=== PATIENT | male | born 1955 | race Caucasian/White ===

== ENCOUNTER → 2020-04-29 | Outpatient (CLI) | payer OTHER | LOC: M LABSMTC 08:57 | PROVIDERS: ATTEND Anesthesiology | DX: Z01.818 Encounter for other preprocedural examination (principal); Z20.828 Contact with and (suspected) exposure to other viral communicable diseases | CPT/HCPCS: C9803; U0003 ==

== ENCOUNTER 2020-05-04 09:45 | Day surgery (SDC) | payer OTHER ==
[~2020-05-04] VITALS: Ht 177.8 cm; Wt 83.5 kg
[~2020-05-04 09:45] MED LIST: AMLO1TAB25 PO; CLAR10CA3 PO; ECOT81TA5 PO; LOSA100T50 PO; LR 1,000 ML IV ONE; SERT50TA29 PO
[2020-05-04 10:50] LABS: BLOOD UREA NITROGEN 10 MG/DL (7-18); CALCIUM LEVEL 9.3 MG/DL (8.8-10.2); CARBON DIOXIDE LEVEL 30 MEQ/L (21-32); CHLORIDE LEVEL 105 MEQ/L (98-107); CREATININE FOR GFR 0.91 MG/DL (0.70-1.30); GLOMERULAR FILTRATION RATE > 60.0 (>49); GLUCOSE, FASTING 112 MG/DL (70-100); POTASSIUM SERUM 4.1 MEQ/L (3.5-5.1); SODIUM LEVEL 141 MEQ/L (136-145)
[2020-05-04] MEDS ORDERED: BUPIVACAINE HCL 0.25% 30ML VIAL As Ordered ONE (12:25)
[2020-05-04] MEDS ORDERED: METOCLOPRAMIDE INJ 10MG/2ML VIAL (J2765 PER 1) As Ordered ONE (13:14)
[2020-05-04] MEDS ORDERED: dexameTHASONE 4 MG/ML 1ML VIAL (J1100 PER 1MG) As Ordered ONE (13:14)
[2020-05-04] MEDS ORDERED: ONDANSETRON 4MG/2ML VIAL As Ordered ONE (13:14)
[2020-05-04] MEDS ORDERED: ROCURONIUM BROMIDE 50 MG/5 ML VIAL As Ordered ONE (13:14)
[2020-05-04] MEDS ORDERED: propofoL 200 MG/20 ML VIAL As Ordered ONE (13:14)
[2020-05-04] MEDS ORDERED: LIDOCAINE 2% 100MG/5ML SDV (FOR ANES.) As Ordered ONE (13:14)
[2020-05-04] MEDS ORDERED: SUGAMMADEX SODIUM 500 MG/5 ML VIAL (BRIDION) As Ordered ONE (13:14)
[2020-05-04] MEDS ORDERED: MIDAZOLAM INJ 2MG/2ML VIAL (J2250 PER 1MG) As Ordered ONE (13:14)
[2020-05-04] MEDS ORDERED: fentaNYL 250 MCG/5 ML INJECTION (J3010) As Ordered ONE (13:14)
[2020-05-04] MEDS ORDERED: ACETAMINOPHEN 1000MG 100ML IV BTL (OFIRMEV) (J0131 PER 10MG) As Ordered ONE (13:52)
[2020-05-04] MEDS: LR 1,000 ML IV SCH ×2 (14:45→15:40)
[2020-05-04] MEDS ORDERED: NORC1TAB7 PO (14:58)
[2020-05-04] MEDS ORDERED: MEPERIDINE INJ 25 MG/ML VIAL (J2175) IV PRN (15:30)
[2020-05-04] MEDS ORDERED: fentaNYL 100 MCG/2 ML INJECTION (J3010) IV PRN (15:30)
[2020-05-04] MEDS ORDERED: ONDANSETRON 4MG/2ML VIAL IV PRN (15:30)
[2020-05-04] MEDS ORDERED: METOCLOPRAMIDE INJ 10MG/2ML VIAL (J2765 PER 1) IV PRN (15:30)
[2020-05-04] MEDS: oxyCODONE 5MG TAB PO PRN ×2 (15:41→16:11)
[2020-05-04] MEDS ORDERED: ACETAMINOPHEN TAB 650MG DOSE (2X325MG) PO PRN (16:00)
[2020-05-04] MEDS ORDERED: NORCO, ANEXSIA 5/325MG TABLET (HYDROcodone/ACETAMINOPHEN) PO PRN (16:00)
[2020-05-04] MEDS ORDERED: IBUPROFEN 600MG TAB PO PRN (16:00)
--- NOTE | 2020-05-05 15:25 | ECGEPIP ---
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
--- NOTE | 2020-05-08 13:59 | RO ---
DATE OF PROCEDURE: 05/04/2020 PREOPERATIVE DIAGNOSIS: Right inguinal hernia. POSTOPERATIVE DIAGNOSIS: Direct right inguinal hernia. PROCEDURE PERFORMED: Robotic-assisted laparoscopic right inguinal herniorrhaphy with mesh. The mesh utilized was [employer] ProGrip, reference code [id number], and lot number [id number]. SURGEON: Patrick Pandey MD LOG HAUL OPERATOR: Michelle Kong. Vidhya assistance was essential for management of the robot with adjustment of the robotic arms and instruments and passage of sutures and mesh. ANESTHESIA: General. INDICATIONS FOR THE PROCEDURE: Patient is a 65-year-old man who presented with complaints of a small intermittent bulge in the right groin area with some discomfort. He had had a previous left inguinal hernia repair done in [place] approximately three years earlier. He is now for a robotic-assisted right inguinal herniorrhaphy. OPERATIVE PROCEDURE: Patient was brought to the operating room and placed on the table in a supine position. He was placed under general endotracheal anesthesia. The patients abdomen, groins, and genitalia were prepped and draped in a sterile fashion. 0.25% Marcaine was infiltrated at each of the trocar sites as needed. A short transverse incision was made in the epigastrium approximately 3 cm to the left of the midline and approximately 4-5 cm above the umbilicus. A varus needle was inserted and after a positive hanging drop test the abdomen was inflated with carbon dioxide gas. An 8 mm robotic port was placed over a 5 mm scope and advanced through the abdominal wall without difficulty. Initial examination showed no evidence of trocar injury. Inspection showed normal appearing small and large bowel. The stomach appeared normal. The gallbladder and liver appeared normal as well. A second 8 mm port was placed in the right upper quadrant and a third was placed in the left upper quadrant. The patient was then tilted to approximately 15 degrees of Trendelenburg position. The patient cart of the [email or web address] robotic system was brought into position and the endoscope arm was docked to the middle port. Targeting took place in the pelvis and the additional robotic arms were docked. A fenestrated bipolar and cauterizing scissors were inserted. I then moved to the control console to proceed with the operation. Initial inspection showed a small hernia defect on the right which was clearly medial to the inferior epigastric vessels. There was a protrusion noted in the left inguinal area of what appeared to be some mesh material indenting to the peritoneum in this area. There was no sign of a recurrent hernia on the left. I then moved to proceed with creation of a peritoneal flap on the right. Beginning at the medial umbilical ligament, the peritoneum was opened using the cauterizing scissors in an arc that extended laterally and then inferiorly toward the anterior superior iliac spine. A flap of the peritoneum and preperitoneal tissue was then created with a combination of blunt and cautery and sharp dissection. The spermatic cord vessels were identified and preserved. The vas deferens was noted. There was some fibrofatty tissue extending into the direct hernia defect somewhat and this was reduced with the peritoneal flap. The direct hernia defect appeared large enough to potentially cause problems with adequate adhesion of the mesh and I elected to close this defect. A 3-0 polybutester V-Loc suture was then used to close the fascial defect. The suture was begun at the medial aspect of the inguinal floor and carried laterally to close the hernia defect suturing the edges of the fascia together and then was carried back toward the medial aspect oversewing a portion of the previous closure for added security. The mesh as identified earlier was then trimmed slightly at the corners and inserted into the abdomen. This was placed into the preperitoneal space and unfolded carefully. This was pressed gently into the tissues allowing adhesion of the adherent surface of the mesh into the soft tissue. This nicely covered the entire inguinal floor area with a nice overlap. The peritoneal flap was then closed beginning at the lateral aspect and running medially with an absorbable 2-0 V-Loc suture. As the closure approached the midpoint, the patient was brought into only a 5 degree head down tilt and the pressure within the abdomen was reduced to 8 mmHg. The closure continued and was completed. At this point, the patient was placed flat. After ensuring that the needles were all recovered, the abdomen was deflated after undocking the robot. The ports were removed and Michelle Kong proceeded to close the incisions with buried 4-0 Vicryl and Steri-Strips. Light dressings were applied. The patient was awakened in the operating room, extubated, and moved to the recovery room in stable condition. PARVIN
== END 2020-05-04 17:19 | disposition home or self-care (01) ==
LOC: M SDC 09:45 → EDUNIT# 11:45 → M SDC 17:19
PROVIDERS: ATTEND Surgery
DX: K40.90 Unilateral inguinal hernia, without obstruction or gangrene, not specified as recurrent (principal); I10 Essential (primary) hypertension; E78.5 Hyperlipidemia, unspecified; K21.9 Gastro-esophageal reflux disease without esophagitis; G47.33 Obstructive sleep apnea (adult) (pediatric); Z79.899 Other long term (current) drug therapy; Z87.891 Personal history of nicotine dependence; Z91.018 Allergy to other foods; Z88.0 Allergy status to penicillin
CPT/HCPCS: 36415; 49650; 80048; 93005; C1781; J0131; J1100; J2250; J2405; J2765; J3010; S2900

== ENCOUNTER 2020-05-11 10:17 | Emergency (ER) | payer OTHER ==
[~2020-05-11] VITALS: Ht 177.8 cm; Wt 83.6 kg
[~2020-05-11 10:17] MED LIST changes: -LR 1,000 ML IV ONE; +NORC1TAB7 PO
[2020-05-11] MEDS ORDERED: ACETAMINOPHEN 500 MG TAB PO ONE (11:45)
--- NOTE | 2020-05-11 12:14 | REP ---
INDICATION: recent surgery, swelling pain r leg COMPARISON: None. TECHNIQUE: Real time compression and duplex Doppler interrogation of the right lower extremity deep venous system is performed. FINDINGS: The right common femoral, superficial femoral and popliteal veins are fully compressible with transducer pressure and demonstrate normal spontaneous and phasic flow, without evidence of deep venous thrombosis. IMPRESSION: No evidence of deep venous thrombosis of the right lower extremity femoral popliteal venous system. <Electronically signed by Chris Bernal > 05/11/20 [id number]
[2020-05-11 12:31] LABS: CK-MB VALUE MASS < 1.0 NG/ML (<3.6); CPK CREATINE PHOSPHOKINASE 72 U/L (39-308); MB/CK RELATIVE INDEX 1.39 (< OR =4); TROPONIN I < 0.02 NG/ML (< 0.10)
--- NOTE | 2020-05-11 14:32 | ECGEPIP ---
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
[2020-05-11 15:37] LABS: CK-MB VALUE MASS < 1.0 NG/ML (<3.6); CPK CREATINE PHOSPHOKINASE 65 U/L (39-308); MB/CK RELATIVE INDEX 1.54 (< OR =4); TROPONIN I < 0.02 NG/ML (< 0.10)
[2020-05-11 15:52] VITALS: BP 155/79
--- NOTE | 2020-05-12 21:28 | ECGEPIP ---
[facility] - ED Test Date: 2020-05-11 Pat Name: JASWANT YOUNGBLOOD Department: Room: - Gender: Male Director Voice: ra : 1955 Requested By: IZAIAH Chang PA-C Order Number: [id number] Reading MD: Allison Antonio Measurements Intervals [place] Rate: 67 P: 28 MD: 175 QRS: -12 QRSD: 106 T: 27 QT: 397 QTc: 419 Interpretive Statements SINUS RHYTHM baseline artifact may affect interpretation SIMILAR 05/11/20 Electronically Signed on 05-12-2020 21:28:10 EST by Allison Antonio
== END 2020-05-11 15:53 | disposition home or self-care (01) ==
LOC: M ED 10:17
DX: R22.41 Localized swelling, mass and lump, right lower limb (principal); R07.9 Chest pain, unspecified; I10 Essential (primary) hypertension; D68.59 Other primary thrombophilia; Z79.899 Other long term (current) drug therapy; Z79.82 Long term (current) use of aspirin; Z88.0 Allergy status to penicillin; Z91.018 Allergy to other foods; Z87.891 Personal history of nicotine dependence

== ENCOUNTER → 2021-07-16 | Outpatient (REF) | payer OTHER ==
[~2021-07-16] MED LIST changes: +LOSA100T45 PO; -LOSA100T50 PO
[2021-07-16 13:36] LABS: BASO % 0.8 % (0.0-1.0); EOS # 0.2 10^3/uL (0.0-0.5); EOS % 2.8 % (0.0-3.0); HEMATOCRIT 46.8 % (42.0-52.0); HEMOGLOBIN 16.7 g/dl (13.5-17.5); LYMPH # 1.5 10^3/uL (1.5-5.0); LYMPH % 28.9 % (24.0-44.0); MEAN CORPUSCULAR HEMOGLOBIN 32.9 pg (27.0-33.0); MEAN CORPUSCULAR HGB CONC 35.7 g/dl (32.0-36.5); MEAN CORPUSCULAR VOLUME 92.3 fl (80.0-96.0); MONO # 0.5 10^3/uL (0.0-0.8); MONO % 9.6 % (2.0-8.0); NEUTROPHILS % 57.5 % (36.0-66.0); PLATELET COUNT, AUTOMATED 186 10^3/uL (150-450); RED BLOOD COUNT 5.07 10^6/uL (4.30-6.10); WHITE BLOOD COUNT 5.3 10^3/uL (4.0-10.0)
[2021-07-16 14:31] LABS: ALBUMIN 4.1 GM/DL (3.2-5.2); ALT/SGPT 76 U/L (12-78); BILIRUBIN,TOTAL 0.8 MG/DL (0.2-1.0); BLOOD UREA NITROGEN 12 MG/DL (7-18); CARBON DIOXIDE LEVEL 29 MEQ/L (21-32); CHLORIDE LEVEL 105 MEQ/L (98-107); CHOLESTEROL LEVEL 174 MG/DL (<200); CHOLESTEROL RISK RATIO 2.761 (<5); CREATININE FOR GFR 0.76 MG/DL (0.70-1.30); GLOMERULAR FILTRATION RATE > 60.0 (>49); GLUCOSE, FASTING 108 MG/DL (70-100); HDL CHOLESTEROL 63 MG/DL (>40); LDL CHOLESTEROL 94 MG/DL (<100); NON-HDL-C 111 MG/DL; POTASSIUM SERUM 4.3 MEQ/L (3.5-5.1); SODIUM LEVEL 140 MEQ/L (136-145); TRIGLYCERIDES LEVEL 84 MG/DL (<150)
== END ==
LOC: M SFHCADAM 09:37
PROVIDERS: ATTEND Family Medicine
DX: Z00.00 Encounter for general adult medical examination without abnormal findings (principal)

== ENCOUNTER → 2021-07-27 | Outpatient (CLI) | payer OTHER | LOC: M RAD 09:27 | PROVIDERS: ATTEND Family Medicine | DX: Z12.2 Encounter for screening for malignant neoplasm of respiratory organs (principal) ==

== ENCOUNTER → 2021-08-20 | Outpatient (REF) | payer OTHER ==
[2021-08-20 13:29] LABS: BLOOD UREA NITROGEN 12 MG/DL (7-18); CALCIUM LEVEL 9.1 MG/DL (8.8-10.2); CARBON DIOXIDE LEVEL 29 MEQ/L (21-32); CHLORIDE LEVEL 105 MEQ/L (98-107); CREATININE FOR GFR 0.74 MG/DL (0.70-1.30); GLOMERULAR FILTRATION RATE > 60.0 (>49); GLUCOSE, FASTING 99 MG/DL (70-100); POTASSIUM SERUM 4.3 MEQ/L (3.5-5.1); SODIUM LEVEL 139 MEQ/L (136-145)
== END ==
LOC: M SFHCADAM 10:08
PROVIDERS: ATTEND Family Medicine
DX: I10 Essential (primary) hypertension (principal)

== ENCOUNTER → 2022-05-19 | Outpatient (CLI) | payer MEDICARE, OTHER ==
[~2022-05-19] MED LIST changes: +FLON1SPR
== END ==
LOC: M LABSMTC 11:29
PROVIDERS: ATTEND Anesthesiology
DX: Z01.812 Encounter for preprocedural laboratory examination (principal); Z11.52 Encounter for screening for COVID-19

== ENCOUNTER 2022-05-24 07:26 | Day surgery (SDC) | payer MEDICARE, OTHER ==
[~2022-05-24] VITALS: Ht 177.8 cm; Wt 78.5 kg
[~2022-05-24 07:26] MED LIST changes: +NS 1,000 ML IV ONE
[2022-05-24] MEDS ORDERED: propofoL 200 MG/20 ML VIAL As Ordered ONE (07:44)
[2022-05-24 09:15] VITALS: BP 135/79
== END 2022-05-24 09:23 | disposition home or self-care (01) ==
LOC: M OPP 07:26
PROVIDERS: ATTEND Surgery
DX: Z12.11 Encounter for screening for malignant neoplasm of colon (principal); Z86.010 Personal history of colon polyps; Z80.0 Family history of malignant neoplasm of digestive organs; K63.5 Polyp of colon; K64.0 First degree hemorrhoids; F32.9 Major depressive disorder, single episode, unspecified; F41.9 Anxiety disorder, unspecified; D68.59 Other primary thrombophilia; G47.30 Sleep apnea, unspecified; I10 Essential (primary) hypertension; Z87.891 Personal history of nicotine dependence; Z79.51 Long term (current) use of inhaled steroids; Z79.82 Long term (current) use of aspirin; Z79.899 Other long term (current) drug therapy; Z88.0 Allergy status to penicillin; Z91.018 Allergy to other foods

== ENCOUNTER → 2022-08-23 | Outpatient (REF) | payer MEDICARE ==
[~2022-08-23] MED LIST changes: -NS 1,000 ML IV ONE
== END ==
LOC: M LAB REF 16:10
PROVIDERS: ATTEND Physician Assistant
DX: S39.012A Strain of muscle, fascia and tendon of lower back, initial encounter (principal); R10.30 Lower abdominal pain, unspecified

== ENCOUNTER → 2022-09-05 | Outpatient (CLI) | payer MEDICARE | LOC: M RAD 09:56 | PROVIDERS: ATTEND Family Medicine | DX: M54.6 Pain in thoracic spine (principal) ==

== ENCOUNTER → 2022-11-19 | Outpatient (CLI) | payer MEDICARE ==
[~2022-11-19] MED LIST changes: -LOSA100T45 PO; +LOSA100T46 PO
== END ==
LOC: M RAD 07:34
PROVIDERS: ATTEND Family Medicine
DX: Z12.2 Encounter for screening for malignant neoplasm of respiratory organs (principal); Z87.891 Personal history of nicotine dependence

== ENCOUNTER → 2023-02-12 | Outpatient (CLI) | payer MEDICARE | LOC: M SOG 07:56 | PROVIDERS: ATTEND Orthopaedic Surgery | DX: M25.511 Pain in right shoulder (principal) ==

== ENCOUNTER → 2023-07-25 | Outpatient (CLI) | payer MEDICARE | LOC: M PLARAD 09:23 | PROVIDERS: ATTEND Orthopaedic Surgery | DX: M25.511 Pain in right shoulder (principal) ==

== ENCOUNTER → 2023-08-06 | Outpatient (CLI) | payer MEDICARE | LOC: M RAD 08:57 | PROVIDERS: ATTEND Family Medicine | DX: F17.211 Nicotine dependence, cigarettes, in remission (principal) ==

== ENCOUNTER → 2024-02-06 | Outpatient (CLI) | payer MEDICARE | LOC: M RAD 08:45 | PROVIDERS: ATTEND Family Medicine | DX: Z12.2 Encounter for screening for malignant neoplasm of respiratory organs (principal); F17.211 Nicotine dependence, cigarettes, in remission; K76.0 Fatty (change of) liver, not elsewhere classified; R16.1 Splenomegaly, not elsewhere classified ==

== ENCOUNTER → 2024-02-19 | Outpatient (CLI) | payer MEDICARE | LOC: M WUC 09:10 | PROVIDERS: ATTEND Nurse Practitioner Family | DX: M25.571 Pain in right ankle and joints of right foot (principal) ==

== ENCOUNTER → 2025-03-08 | Outpatient (REF) | payer MEDICARE ==
[2025-03-08 15:53] LABS: BASO # 0.0 10^3/uL (0.0-0.2); BASO % 0.5 % (0.0-1.0); EOS # 0.1 10^3/uL (0.0-0.5); EOS % 1.9 % (0.0-3.0); LYMPH # 1.2 10^3/uL (1.5-5.0); LYMPH % 20.7 % (24.0-44.0); MONO # 0.5 10^3/uL (0.0-0.8); MONO % 9.3 % (2.0-8.0); NEUTROPHILS # 3.9 10^3/uL (1.5-8.5); NEUTROPHILS % 67.4 % (36.0-66.0); PLATELET COUNT, AUTOMATED 148 10^3/uL (150-450)
[2025-03-08 16:25] LABS: ALT/SGPT 59 U/L (7.0-40); AST/SGOT 47 U/L (<34); CALCIUM LEVEL 9.3 MG/DL (8.3-10.6); CARBON DIOXIDE LEVEL 30 MMOL/L (20-31); CHLORIDE LEVEL 104 MMOL/L (98-107); CHOLESTEROL LEVEL 166 MG/DL (<200); CHOLESTEROL RISK RATIO 2.76 (<5); CREATININE FOR GFR 0.77 MG/DL (0.70-1.30); GLOMERULAR FILTRATION RATE > 90.0 (>49); LDL CHOLESTEROL 80.5 MG/DL (<100); NON-HDL-C 105.9 MG/DL; POTASSIUM SERUM 4.3 MMOL/L (3.5-5.1); SODIUM LEVEL 140 MMOL/L (136-145); TRIGLYCERIDES LEVEL 127 MG/DL (<150)
== END ==
LOC: M SFHCADAM 11:10
PROVIDERS: ATTEND Family Medicine
DX: Z00.00 Encounter for general adult medical examination without abnormal findings (principal); I10 Essential (primary) hypertension

== ENCOUNTER → 2025-04-06 | Outpatient (CLI) | payer MEDICARE | LOC: M RAD 09:20 | PROVIDERS: ATTEND Family Medicine | DX: F10.10 Alcohol abuse, uncomplicated (principal) ==